=== PATIENT | female | born 1970 | race Caucasian/White ===

== ENCOUNTER 2017-04-22 22:58 | Emergency (ER) | payer OTHER, SELFPAY ==
[2017-04-22 22:59] VITALS: BP 178/91; PULSE 82; RESP 20; TEMP 36.8; O2SAT 99; BMI 32.4
--- NOTE | 2017-04-22 23:16 | XR_ITS ---
XR chest portable HISTORY: ITS.REASON: CHEST PAIN ORDERING PHYSICIAN: Addy Nunez MD PATIENT AGE: 47 years COMPARISON: 11/13/2016 FINDINGS: Mild cardiomegaly without failure.. The lungs are clear without infiltrates, suspicious nodules, or pleural effusions. No acute bony abnormalities. IMPRESSION: Mild cardiomegaly otherwise negative
[2017-04-22 23:43] LABS: Basophils % 0.4 % (0.1-2.0); Eosinophils # 0.1 K/mm3 (0.0-0.4); Eosinophils % 0.5 % (0.1-12.0); Hematocrit 39.3 % (37.0-47.0); Hemoglobin 13.1 g/dL (12.2-16.2); Lymphocytes % 23.3 K/mm3 (10-50); Mean Corpuscular HGB Conc 33.2 g/dL (31.8-35.4); Mean Corpuscular Hemoglobin 29.3 pg (27.0-31.2); Mean Corpuscular Volume 88.2 fl (81-99); Mean Platelet Volume 7.2 fl (7.4-10.4); Monocytes # 0.7 K/mm3 (0.1-1.0); Monocytes % 5.5 % (1.7-9.3); Neutrophils # 8.9 K/mm3 (1.8-7.8); Neutrophils % 70.3 % (37.0-80.0); Platelet Count 267 K/mm3 (142-424); Red Blood Count 4.45 M/mm3 (4.20-5.40); Red Cell Distribution Width 14.2 % (11.5-17.5); White Blood Count 12.7 K/mm3 (4.8-10.8)
[2017-04-23] VITALS (11 sets, daily range): BP systolic 67–157; BP diastolic 24–116; PULSE 67–86; RESP 16–20; TEMP 36.8; O2SAT 96–100
[2017-04-23 00:10] LABS: Alanine Aminotransferase 34 U/L (12-78); Albumin Level 3.7 gm/dL (3.4-5.0); Albumin/Globulin Ratio 1.2 (1.1-1.8); Alkaline Phosphatase 68 U/L (46-116); Anion Gap 12.9 mEq/L (5-15); Aspartate Amino Transferase 15 U/L (15-37); Bilirubin,Total 1.1 mg/dL (0.2-1.0); Blood Urea Nitrogen 4 mg/dL (7-18); CKMB Relative Index 2.1 U/L (0-4.0); Carbon Dioxide 27 mmol/L (21.0-32.0); Chloride 91 mmol/L (98-107); Creatine Kinase 28 U/L (26-192); Creatine Kinase MB 0.6 mg/ml (0.0-3.6); Creatinine Clearance Estimated 146 mL/min (0-300); Creatinine,Serum 0.66 mg/dL (0.55-1.02); Estimated Glomerular Filt Rate 96 ml/min (>60); GFR (African American) 116 ML/MIN (>60); Globulin 3.2 gm/dl (1.3-3.2); Glucose 94 mg/dL (74-106); Potassium 3.9 mmoL/L (3.5-5.1); Sodium 127 mmol/L (136-145); Total Protein,Serum 6.9 gm/dL (6.4-8.2); Troponin I < 0.02 ng/ml (0.00-0.06)
--- NOTE | 2017-04-23 00:15 | HMH.EDCP ---
ED Disposition Clinical Impression: Chest pain Qualifiers: Chest pain type: other chest pain Qualified Code(s): R07.89 - Other chest pain Disposition: Home, Self-Care Condition on Discharge: Good Instructions: DI for Atypical Chest Pain Additional Instructions: Please follow up with Dr Kumar Baldwin, at MEDICAL SERVICES: HEART & VASCULAR SPECIALTIES: CARDIOLOGY [facility] [place] [address] [address], [place] [address] [facility] [place] [address], [place] [address] [facility] [place] [address] [place] [address] as soon as possible (within the next 12 hrs) Referrals: Dontrell Malhotra MD [Primary Care Provider] - Time of Disposition: 02:06 - Critical Care Critical Care Time: No Attestation: On 04/22/17, the high probability of a clinically significant, sudden or life threatening deterioration of the following system(s) required my full and direct attention, intervention and personal management. The time I documented below is in addition to time spent performing reported procedures but includes the following listed in this critical care notation. Medical Decision Making - Medical Records Medical records reviewed: Yes: I reviewed the patient's medical records. Vital Signs: 04/22/17 22:59 04/23/17 00:09 Temperature 98.3 F Temperature Source Oral Pulse Rate [Right Radial] 82 72 Respiratory Rate 20 20 Blood Pressure [Left Arm] 178/91 157/100 Blood Pressure Mean [Left Arm] 120 119 Blood Pressure Source [Left Arm] Automatic Cuff Automatic Cuff Blood Pressure Position [Left Arm] Supine Supine 02 Sat by Pulse Oximetry 99 100 Oxygen Delivery Method Room Air Room Air - Lab Data Lab results reviewed: Yes: I reviewed the patient's lab results. Lab Results 04/22/17 23:25: WBC 12.7 H, RBC 4.45, Hgb 13.1, Hct 39.3, MCV 88.2, MCH 29.3, MCHC 33.2, RDW 14.2, Plt Count 267, MPV 7.2 L, Neut % (Auto) 70.3, Lymph % (Auto) 23.3, [place] % (Auto) 5.5, Eos % (Auto) 0.5, Baso % (Auto) 0.4, Neut # (Auto) 8.9 H, Lymph # (Auto) 3.0, [place] # (Auto) 0.7, Eos # (Auto) 0.1, Baso # (Auto) 0.0 04/22/17 23:25: Sodium 127 L, Potassium 3.9, Chloride 91 L, Carbon Dioxide 27, Anion Gap 12.9, BUN 4 L, Creatinine 0.66, Estimated Creat Clear 146, Estimated GFR 96, Est GFR ( Amer) 116, Glucose 94, Calcium 9.0, Total Bilirubin 1.1 H, AST 15, ALT 34, Alkaline Phosphatase 68, Total Creatine Kinase 28, CK-MB (CK-2) 0.6, CK-MB (CK-2) Rel Index 2.1, Troponin I < 0.02, Total Protein 6.9, Albumin 3.7, Globulin 3.2, Albumin/Globulin Ratio 1.2 04/23/17 02:50: Total Creatine Kinase 125 D, CK-MB (CK-2) 0.9 D, CK-MB (CK-2) Rel Index 0.7, Troponin I < 0.02 Result diagrams: 04/22/17 23:25 04/22/17 23:25 Orders (Tests/Meds): ED MEDICATIONS Discontinued Medications Generic Name Dose Route Start Last Admin Trade Name Freq PRN Reason Stop Dose Admin Acetaminophen 325 mg 04/23/17 02:22 04/23/17 02:58 Acetaminophen 325mg Tab PO 04/23/17 02:23 325 mg ONCE ONE Administration Lorazepam 1 mg 04/23/17 04:12 04/23/17 04:21 Ativan 2mg/Ml Vial IV 04/23/17 04:13 1 mg ONCE ONE Administration Morphine Sulfate 4 mg 04/22/17 23:35 04/22/17 23:41 Morphine 4mg/Ml Syringe IV 04/22/17 23:36 4 mg ONCE ONE Administration Ondansetron HCl 4 mg 04/22/17 23:36 04/22/17 23:41 Zofran 4mg/2ml Vial IV 04/22/17 23:37 4 mg ONCE ONE Administration ORDERS Category Date Time Status 12-lead EKG Request [ECG Request by /Nse] Stat Y 04/22/17 23:16 Ordered - Radiology Data #1 Image(s): Chest Image Reviewed: Yes I reviewed the patient's radiology results Preliminary Findings: Normal/NAD - ECG Data Tracing #1 I reviewed this ECG and interpreted as documented below: ECG normal with no acute: arrhythmias, ischemia, conduction abnorm
--- NOTE | 2017-04-23 00:19 | ED_ITS ---
ED Disposition Clinical Impression: Chest pain Qualifiers: Chest pain type: other chest pain Qualified Code(s): R07.89 - Other chest pain Disposition: Home, Self-Care Condition on Discharge: Good Instructions: DI for Atypical Chest Pain Additional Instructions: Please follow up with Dr Kumar Baldwin, at MEDICAL SERVICES: HEART & VASCULAR SPECIALTIES: CARDIOLOGY [facility] [place] [facility] [address], [place] [address] [facility] [place] [address], [place] [address] [facility] [place] [address] [place] [address] as soon as possible (within the next 12 hrs) Referrals: Dontrell Malhotra MD [Primary Care Provider] - Time of Disposition: 02:06 - Critical Care Critical Care Time: No Attestation: On 04/22/17, the high probability of a clinically significant, sudden or life threatening deterioration of the following system(s) required my full and direct attention, intervention and personal management. The time I documented below is in addition to time spent performing reported procedures but includes the following listed in this critical care notation. Medical Decision Making - Medical Records Medical records reviewed: Yes: I reviewed the patient's medical records. Vital Signs: 04/22/17 22:59 04/23/17 00:09 Temperature 98.3 F Temperature Source Oral Pulse Rate [Right Radial] 82 72 Respiratory Rate 20 20 Blood Pressure [Left Arm] 178/91 157/100 Blood Pressure Mean [Left Arm] 120 119 Blood Pressure Source [Left Arm] Automatic Cuff Automatic Cuff Blood Pressure Position [Left Arm] Supine Supine 02 Sat by Pulse Oximetry 99 100 Oxygen Delivery Method Room Air Room Air - Lab Data Lab results reviewed: Yes: I reviewed the patient's lab results. Lab Results 04/22/17 23:25: WBC 12.7 H, RBC 4.45, Hgb 13.1, Hct 39.3, MCV 88.2, MCH 29.3, MCHC 33.2, RDW 14.2, Plt Count 267, MPV 7.2 L, Neut % (Auto) 70.3, Lymph % (Auto ) 23.3, [place] % (Auto) 5.5, Eos % (Auto) 0.5, Baso % (Auto) 0.4, Neut # (Auto) 8.9 H, Lymph # (Auto) 3.0, [place] # (Auto) 0.7, Eos # (Auto) 0.1, Baso # (Auto) 0.0 04/22/17 23:25: Sodium 127 L, Potassium 3.9, Chloride 91 L, Carbon Dioxide 27, Anion Gap 12.9, BUN 4 L, Creatinine 0.66, Estimated Creat Clear 146, Estimated GFR 96, Est GFR ( Amer) 116, Glucose 94, Calcium 9.0, Total Bilirubin 1.1 H, AST 15, ALT 34, Alkaline Phosphatase 68, Total Creatine Kinase 28, CK-MB (CK-2) 0.6, CK-MB (CK-2) Rel Index 2.1, Troponin I < 0.02, Total Protein 6.9, Albumin 3.7, Globulin 3.2, Albumin/Globulin Ratio 1.2 04/23/17 02:50: Total Creatine Kinase 125 D, CK-MB (CK-2) 0.9 D, CK-MB (CK-2) Rel Index 0.7, Troponin I < 0.02 Result diagrams: 04/22/17 23:25 04/22/17 23:25 Orders (Tests/Meds): ED MEDICATIONS Discontinued Medications Generic Name Dose Route Start Last Admin Trade Name Teto PRN Reason Stop Dose Admin Acetaminophen 325 mg 04/23/17 02:22 04/23/17 02:58 Acetaminophen 325mg Tab PO 04/23/17 02:23 325 mg ONCE ONE Administration Lorazepam 1 mg 04/23/17 04:12 04/23/17 04:21 Ativan 2mg/Ml Vial IV 04/23/17 04:13 1 mg ONCE ONE Administration Morphine Sulfate 4 mg 04/22/17 23:35 04/22/17 23:41 Morphine 4mg/Ml Syringe IV
[2017-04-23 03:34] LABS: CKMB Relative Index 0.7 U/L (0-4.0); Creatine Kinase 125 U/L (26-192); Creatine Kinase MB 0.9 mg/ml (0.0-3.6); Troponin I < 0.02 ng/ml (0.00-0.06)
--- NOTE | 2017-04-23 07:52 | PC.NURSE ---
susan bazan at bedside.
--- NOTE | 2017-04-23 10:20 | PC.NURSE ---
tank from [facility] contacted the ER regarding the patient. She states that while on the phone that patient spoke of suicidal thought. Megan Rudolph went in and talked to the patient. She denied any current thought of suicide or self harm. She denies any plan for suicide of self harm. She promises no suicidal or self harming behavior at this time. She states that she is upset and told [facility] staff that she has in the past had suicidal thoughts. This information was relayed back to [facility] and they are continuing to work on a plan for transport to a custodial.
--- NOTE | 2017-04-23 11:04 | PC.NURSE ---
[facility] is continuing to work on finding a place for this patient to stay. care management can get the patient a ride once she has a destination.
--- NOTE | 2017-04-23 13:09 | PC.NURSE ---
PT WILL BE TRANSPORTED TO THE [facility] IN [place]. [facility] WILL BE TRNASPORTING THE PATIENT. SHE IS CURRENTLY TAKING A NAP
--- NOTE | 2017-04-23 14:57 | PC.NURSE ---
pt is awake and has been updated on her discharge plan to the jail in [place].
== END 2017-04-23 15:46 | disposition home or self-care (01) ==
PROVIDERS: Emergency Medicine; Emergency Provider Emergency Medicine; PCP Emergency Medicine
DX: R07.89 Other chest pain (principal); R06.02 Shortness of breath; E11.9 Type 2 diabetes mellitus without complications; Z88.6 Allergy status to analgesic agent; F17.210 Nicotine dependence, cigarettes, uncomplicated
CPT/HCPCS: 71045; 80053; 82550; 82553; 84484; 85025; 93005; 96374; 96375; 99282; 99283; J2405